=== PATIENT | female | born 1980 | race Hispanic/Latino ===

== ENCOUNTER 2017-02-24 02:44 | Emergency (ER) | payer MEDICAID, OTHER ==
[2017-02-24] MEDS ORDERED: LIDOCAINE HCL-MPF 1% 2ML VIAL ONE (03:01)
[2017-02-24] MEDS ORDERED: CEFTRIAXONE SODIUM 1 GM ONE (03:02)
[2017-02-24] MEDS ORDERED: ACETAMINOPHEN-CODEINE 300/30MG TAB ONE (03:02)
[2017-02-24] MEDS ORDERED: LIDOCAINE HCL 2% VISCOUS 15 ML UDCUP ONE (03:05)
== END 2017-02-24 03:22 | disposition home or self-care (01) ==
LOC: EDH 02:44
DX: H66.92 Otitis media, unspecified, left ear (principal); H92.02 Otalgia, left ear
CPT/HCPCS: 96372; 99283; J0696; J3490